=== PATIENT | female | born 1965 | race Caucasian/White ===

== ENCOUNTER 2024-03-22 15:12 | Emergency (ER) | payer OTHER ==
[2024-03-22 15:44] VITALS: RESP 18; TEMP 97.7
--- NOTE | 2024-03-22 16:18 | ED ---
Fall HPI - General Chief Complaint: Fall Stated Complaint: Fall-Head Injury Time Seen by Provider: 03/22/24 15:32 Source: patient, RN notes reviewed Mode of arrival: ambulatory - History of Present Illness Initial Comments: Patient is a 59-year-old female presents emergency department chief complaint of a fall. Patient states that she was backing up a boat ramp when she slipped backwards striking the back of her head. Patient denies loss of consciousness at the time of this event. Currently, patient states that she has a very mild headache. She denies feelings of nausea, changes in vision, neurological deficits, neck pain or other extremity injury. Patient denies current use of blood thinners. She believes that she is up-to-date on her tetanus vaccine, however is unaware of when the last vaccination was. No other acute complaints at this time. - Related Data Allergies Allergy/AdvReac Type Severity Reaction Status Date / Time codeine AdvReac Unknown Verified 03/22/24 15:45 Sulfa (Sulfonamide AdvReac Unknown Verified 03/22/24 15:45 Antibiotics) Review of Systems ROS Statement: Those systems with pertinent positive or pertinent negative responses have been documented in the HPI. ROS Other: All systems not noted in ROS Statement are negative. Past Medical History Past Medical History: Thyroid Disorder History of Any Multi-Drug Resistant Organisms: None Reported Past Surgical History: Breast Surgery, Section, Cholecystectomy, Ear Surgery, Tonsillectomy Past Psychological History: No Psychological Hx Reported Smoking Status: Former smoker Past Alcohol Use History: Rare Past Drug Use History: None Reported General Exam Limitations: no limitations Head exam: Present: other (posterior laceration irregular shape, roughly 3 cm) Eye exam: Present: normal appearance, PERRL, EOMI. Absent: scleral icterus, conjunctival injection, periorbital swelling ENT exam: Present: normal exam, mucous membranes moist Neck exam: Present: normal inspection. Absent: tenderness, meningismus, lymphadenopathy Respiratory exam: Present: normal lung sounds bilaterally. Absent: respiratory distress, wheezes, rales, rhonchi, stridor Cardiovascular Exam: Present: regular rate, normal rhythm, normal heart sounds. Absent: systolic murmur, diastolic murmur, rubs, gallop, clicks GI/Abdominal exam: Present: soft, normal bowel sounds. Absent: distended, tenderness, guarding, rebound, rigid Extremities exam: Present: normal inspection, full ROM, normal capillary refill. Absent: tenderness, pedal edema, joint swelling, calf tenderness Back exam: Present: normal inspection Neurological exam: Present: alert, oriented X3, CN II-XII intact Psychiatric exam: Present: normal affect, normal mood Skin exam: Present: warm, dry, intact, normal color. Absent: rash Course Vital Signs 03/22/24 03/22/24 15:41 18:37 Temperature 97.7 F Pulse Rate 56 L 55 L Respiratory 18 18 Rate Blood Pressure 119/75 O2 Sat by Pulse 99 99 Oximetry Procedures - Laceration Laceration #1 Consent Obtained: verbal consent Indication: laceration Site: scalp Size (cm): 3 Description: irregular Depth: simple, single layer Sedation/Analgesia: none Pre-repair: wound explored, irrigated extensively Type of Sutures: other (donya) Size of Sutures: other (donya) Number of Sutures: 4 Technique: other (donya) Patient Tolerated Procedure: well, no complications Medical Decision Making - Medical Decision Making Was pt. sent in by a medical professional or institution (Dr. PA, NURSE CASE MANAGEMENT, urgent care, hospital, or fci...) When possible be specific @ -No Did you speak to anyone other than the patient for history (EMS, parent, family, police, friend...)? What history was obtained from this source @ -No Did you review nursing and triage notes (agree or disagree)? Why? @ -I reviewed and agree with nursing and triage notes Were old charts reviewed (outside hosp., previous admission, EMS record, old EKG, old radiological studies, urgent care reports/EKG's, fci records)? Report findings @ -No old charts were reviewed Differential Diagnosis (chest pain, altered mental status, abdominal pain women, abdominal pain men, vaginal bleeding, weakness, fever, dyspnea, syncope, headache, dizziness, GI bleed, back pain, seizure, CVA, palpatations, mental health, musculoskeletal)? @ -laceration, subdural hematoma, contusion, this list is not all inclusive EKG interpreted by me (3pts min.). @ -none X-rays interpreted by me (1pt min.). @ -None done CT interpreted by me (1pt min.). @ -CT brain and C-spine without contrast reveals no acute intracranial process, no acute cervical spine fracture. Incidental 10.9 mm pituitary gland measurement. U/S interpreted by me (1pt. min.). @ -None done What testing was considered but not performed or refused? (CT, X-rays, U/S, labs)? Why? @ -None What meds were considered but not given or refused? Why? @ -None Did you discuss the management of the patient with other professionals (professionals i.e. , PA, NURSE CASE MANAGEMENT, lab, RT, psych nurse, social human services assistants, burglar alarm superintendent, teacher, deportation officer, senior case manager)? Give summary @ -No Was smoking cessation discussed for >3mins.? @ -No Was critical care preformed (if so, how long)? @ -No Were there social determinants of health that impacted care today? How? (Homelessness, low income, unemployed, alcoholism, drug addiction, transportation, low edu. Level, literacy, decrease access to med. care, fpc, rehab)? @ -No Was there de-escalation of care discussed even if they declined (Discuss DNR or withdrawal of care, Hospice)? DNR status @ -No What co-morbidities impacted this encounter? (DM, HTN, Smoking, COPD, CAD, Cancer, CVA, ARF, Chemo, Hep., AIDS, mental health diagnosis, sleep apnea, morbid obesity)? @ -None Was patient admitted / discharged? Hospital course, mention meds given and route, prescriptions, significant lab abnormalities, going to OR and other pertinent info. @ -59-year-old female with a fall. On examination there are no acute neurological deficits noted. Vitals are stable upon arrival. There is a contusion with swelling to the posterior scalp with a laceration. Patient's mechanism of injury she will be sent for CT of the head and neck for further evaluation. Additionally, she is provided with her tetanus vaccination. Negative for acute process. Area is thoroughly cleansed with Betadine and sterile water and 4 donya are placed. Have patient return to emergency dep artment or report to her primary care provider in 10 days for staple removal. All questions answered at bedside and strict return parameters jenni with the patient she is verbalized understanding. Discussed with Dr. Barrios Undiagnosed new problem with uncertain prognosis? @ -No Drug Therapy requiring intensive monitoring for toxicity (Heparin, Nitro, Insulin, Cardizem)? @ -No Were any procedures done? @ -Irrigation, donya Diagnosis/symptom? @ -Fall, laceration Acute, or Chronic, or Acute on Chronic? @ -Acute Uncomplicated (without systemic symptoms) or Complicated (systemic symptoms)? @ -Uncomplicated Side effects of treatment? @ -No Exacerbation, Progression, or Severe Exacerbation? @ -No Poses a threat to life or bodily function? How? (Chest pain, [place], [place], pneumonia, PE, COPD, DKA, ARF, appy, cholecystitis, CVA, Diverticulitis, Homicidal, Suicidal, threat to staff... and all critical care pts) @ -No Disposition Clinical Impression: Fall, Laceration, Head injury due to trauma Disposition: HOME SELF-CARE Condition: Good Instructions (If sedation given, give patient instructions): Staple Care (ED) Additional Instructions: Return to the emergency department for any new or worsening symptoms. Report to primary care provider in 1 days for staple removal. Continue to cycle Tylenol Motrin and use ice packs to the affected area. Is patient prescribed a controlled substance at d/c from ED?: No Referrals: Nonstaff,Physician [Primary Care Provider] - 1-2 days Time of Disposition: 18:09
[2024-03-22] MEDS: DIPH,PERTUS(ACELL)TETVAC-LF 0.5 ML VIAL IM ONE (16:34)
--- NOTE | 2024-03-22 17:24 | CT ---
EXAMINATION TYPE: CT brain cspine wo con CT DLP: 1414.2 mGycm, Automated exposure control for dose reduction was used. DATE OF EXAM: 03/22/2024 5:01 PM COMPARISON: None. CLINICAL INDICATION:Female, 59 years old with history of fall, injury posterior scalp; PAIN AFTER SLI P AND FALL AND HIT BACK HEAD ON CEMENT. Initial encounter. TECHNIQUE: Brain: Multiple axial CT images of the brain were obtained without IV contrast. Cspine: Axial CT images from the skull base to the inferior aspect of T2 we obtained without intraven ous contrast. Coronal and sagittal reformatted images were also reviewed. FINDINGS: Brain: Extra-axial spaces: No abnormal extra-axial fluid collections. Midline: Pituitary gland measures 10.9 millimeters inferior to superior. Is there a concern for pitui tary adenoma? Correlate clinically. Consider MRI brain without and with contrast using pituitary glan d protocol. Operations Leader follow up Ventricular system: Within normal limits Cerebral parenchyma: No acute intraparenchymal hemorrhage or mass effect. The morrow-white junction is well differentiated. Cerebellum: Unremarkable. Mass effect: No evidence of midline shift. Intracranial vasculature: unremarkable Soft tissues: Normal. Calvarium/osseous structures: No depressed skull fracture. Paranasal sinuses and mastoid air cells: Clear. Visualized orbits: Orbital contents are intact. Cervical spine: Fracture: None. Osseous structures: Unremarkable Breast: Multilevel degenerative loss of disc height with multilevel endplate osteophyte Vertebral alignment: Within normal limits. Spinal canal/Neural Foramina: No evidence of significant spinal canal narrowing. No evidence for sign ificant neural foraminal stenosis. Neck soft tissues: Prevertebral soft tissues are within normal limits. Other: The airway is patent. The lung apices are clear. IMPRESSION: No acute intracranial process. Midline: Pituitary gland measures 10.9 millimeters inferior to superior. Is there a concern for pitui tary adenoma? Correlate clinically. Consider MRI brain without and with contrast using pituitary glan d protocol. Operations Leader follow up No evidence of cervical spine fracture. Mild multilevel degenerative disc disease.
[2024-03-22 18:40] VITALS: BP 119/75; PULSE 55
== END 2024-03-22 18:37 | disposition home or self-care (01) ==
LOC: EC 15:12
DX: S01.01XA Laceration without foreign body of scalp, initial encounter (principal); Z87.891 Personal history of nicotine dependence; Z88.2 Allergy status to sulfonamides; Z88.5 Allergy status to narcotic agent; Z23 Encounter for immunization; W01.0XXA Fall on same level from slipping, tripping and stumbling without subsequent striking against object, initial encounter
CPT/HCPCS: 12002; 70450; 72125; 90471; 90715; 99284